=== PATIENT | female | born 1985 | race Caucasian/White ===

== ENCOUNTER 2019-04-30 04:10 | Inpatient (IN) | payer BC, OTHER ==
[~2019-04-30] VITALS: Ht 162.6 cm; Wt 72.0 kg
[2019-04-30 04:20] VITALS: BP 146/81
[2019-04-30] MEDS ORDERED: OXYTOCIN 30U/ 0.9% NaCL 500ML 500 ML IV ONE (04:23)
[2019-04-30] MEDS ORDERED: D5%-LACTATED RINGERS 1,000 ML IV SCH (04:23)
[2019-04-30] MEDS ORDERED: LACTATED RINGERS 1,000 ML IV SCH ×3 (04:23→05:14)
[2019-04-30] MEDS ORDERED: CALCIUM CARBONATE 500 MG TAB.CHEW PO PRN (04:30)
[2019-04-30] MEDS ORDERED: PENICILLIN GK 5,000,000 UNITS in DEXTROSE 5% 100 ML IVPB ONE (04:30)
[2019-04-30] MEDS ORDERED: FENTANYL PF 100 MCG/2ML IVPush PRN (04:30)
[2019-04-30] MEDS ORDERED: TERBUTALINE 1 MG/ML, 1ML SQ PRN (04:30)
[2019-04-30] MEDS ORDERED: FENTANYL PF 100 MCG/2ML IV PRN (04:30)
[2019-04-30] MEDS ORDERED: TERBUTALINE 1 MG/ML, 1ML IVPush PRN (04:30)
[2019-04-30] MEDS ORDERED: ONDANSETRON 2MG/ML, 2ML IVPush PRN (04:30)
[2019-04-30] MEDS ORDERED: LIDOCAINE 1%, 20ML ONE (04:52)
[2019-04-30] MEDS ORDERED: NEWBORN KIT ONE (04:52)
[2019-04-30] MEDS ORDERED: OXYTOCIN 30U/ 0.9% NaCL 500ML 500 ML ONE ×2 (04:53→15:37)
[2019-04-30] MEDS ORDERED: MISOPROSTOL 200 MCG TABLET ONE (04:53)
[2019-04-30] MEDS ORDERED: FENTANYL PF 100 MCG/2ML ONE (04:53)
[2019-04-30] MEDS ORDERED: PLEASE ENTER ALLERGIES MC SCH (05:00)
[2019-04-30] MEDS ORDERED: FENTANYL/BUPIV./NS/PF 250 ML EPIDCONT SCH ×2 (05:07→05:14)
[2019-04-30 05:09] LABS: BASOPHILS # (AUTO) 0.04 x10^3/uL (0-0.1); BASOPHILS % (AUTO) 1 % (0-1); EOSINOPHILS # (AUTO) 0.04 x10^3/uL (0-0.4); EOSINOPHILS % (AUTO) 1 % (1-7); LYMPHOCYTES # (AUTO) 1.36 x10^3/uL (1-3.4); LYMPHOCYTES % (AUTO) 20 % (22-44); MD NO; MEAN CORPUSCULAR HEMOGLOBIN 29.7 pg (27.0-34.8); MEAN CORPUSCULAR HGB CONC 32.9 g/dL (32.4-35.8); MEAN CORPUSCULAR VOLUME 90.3 fL (80-100); MONOCYTES # (AUTO) 0.64 x10^3/uL (0.2-0.8); MONOCYTES % (AUTO) 10 % (2-9); NEUTROPHILS # (AUTO) 4.59 x10^3/uL (1.8-6.8); NEUTROPHILS % (AUTO) 69 % (42-75); PLATELET COUNT 170 x10^3/uL (130-400); RED BLOOD COUNT 4.09 x10^6/uL (3.82-5.3)
[2019-04-30] MEDS ORDERED: LACTATED RINGERS 1,000 ML IVBOLUS PRN ×2 (05:30)
[2019-04-30] MEDS ORDERED: EPHEDRINE 50 MG/ML, 1ML IVPush PRN ×2 (05:30)
[2019-04-30] MEDS ORDERED: NALOXONE 0.4 MG/ML, 1ML IVPush PRN (05:30)
[2019-04-30] MEDS ORDERED: OXYTOCIN 30U/ 0.9% NaCL 500ML 500 ML IV PRN (08:17)
[2019-04-30] MEDS: PENICILLIN GK 2,500,000 UNITS in DEXTROSE 5% 100 ML IVPB SCH ×2 (08:48→13:10)
[2019-04-30] MEDS: OXYTOCIN 30U/ 0.9% NaCL 500ML 500 ML IV SCH (14:09)
[2019-04-30] MEDS ORDERED: SIMETHICONE 80 MG CHEW TAB PO PRN (14:30)
[2019-04-30] MEDS ORDERED: ACETAMINOPHEN 325 MG TABLET PO PRN (14:30)
[2019-04-30] MEDS ORDERED: METHYLERGONOVINE 0.2 MG/ML IM PRN (14:30)
[2019-04-30] MEDS ORDERED: OXYcodone/APAP 5/325MG TABLET PO PRN ×2 (14:30)
[2019-04-30] MEDS ORDERED: ONDANSETRON 2MG/ML, 2ML IV PRN (14:30)
[2019-04-30] MEDS ORDERED: IBUPROFEN 600 MG TABLET ONE (14:55)
[2019-04-30] MEDS: IBUPROFEN 600 MG TABLET PO PRN ×2 (15:00→21:08)
[2019-04-30 17:00] VITALS: BP 124/64
[2019-04-30] MEDS ORDERED: MISOPROSTOL 200 MCG TABLET PR ONE (17:00)
[2019-04-30 20:30] VITALS: BP 109/65
[2019-04-30] MEDS: DOCUSATE 100 MG CAPSULE PO PRN (21:09)
[2019-05-01] MEDS: OXYTOCIN 30U/ 0.9% NaCL 500ML 500 ML IV SCH ×2 (00:09→10:09)
[2019-05-01 00:15] VITALS: BP 110/68
[2019-05-01 00:52] LABS: BASOPHILS # (AUTO) 0.01 x10^3/uL (0-0.1); BASOPHILS % (AUTO) 0 % (0-1); EOSINOPHILS # (AUTO) 0.22 x10^3/uL (0-0.4); EOSINOPHILS % (AUTO) 2 % (1-7); LYMPHOCYTES # (AUTO) 0.92 x10^3/uL (1-3.4); LYMPHOCYTES % (AUTO) 9 % (22-44); MD NO; MEAN CORPUSCULAR HEMOGLOBIN 30.3 pg (27.0-34.8); MEAN CORPUSCULAR VOLUME 91.8 fL (80-100); MONOCYTES # (AUTO) 0.84 x10^3/uL (0.2-0.8); MONOCYTES % (AUTO) 8 % (2-9); NEUTROPHILS # (AUTO) 8.27 x10^3/uL (1.8-6.8); NEUTROPHILS % (AUTO) 81 % (42-75); PLATELET COUNT 145 x10^3/uL (130-400); RED BLOOD COUNT 3.03 x10^6/uL (3.82-5.3); RED CELL DISTRIBUTION WIDTH 13.4 % (9.6-15.2)
[2019-05-01 04:20] VITALS: BP 102/64
[2019-05-01] MEDS ORDERED: PRENATAL VIT/IRON/FA 1 EACH TABLET PO SCH (09:00)
[2019-05-01] MEDS: IBUPROFEN 600 MG TABLET PO PRN (09:18)
[2019-05-01] MEDS: DOCUSATE 100 MG CAPSULE PO PRN (09:18)
[2019-05-01 09:30] VITALS: BP 119/77
[2019-05-01] MEDS ORDERED: IBUP-1222 PO (13:19)
== END 2019-05-01 17:35 | disposition home or self-care (01) | DRG 807 ==
LOC: LDOP 04:10 → LDIP 04:15 → 2NW 17:46
PROVIDERS: ADMIT Obstetrics & Gynecology; ATTEND Obstetrics & Gynecology
PROC: 10E0XZZ Delivery of Products of Conception, External Approach (ICD-10-PCS; principal; 2019-04-30)
PROC: 0KQM0ZZ Repair Perineum Muscle, Open Approach (ICD-10-PCS; 2019-04-30)
PROC: 3E0R3BZ Introduction of Anesthetic Agent into Spinal Canal, Percutaneous Approach (ICD-10-PCS; 2019-04-30)
PROC: 00HU33Z Insertion of Infusion Device into Spinal Canal, Percutaneous Approach (ICD-10-PCS; 2019-04-30)
DX: O99.824 Streptococcus B carrier state complicating childbirth (principal); Z37.0 Single live birth; Z3A.39 39 weeks gestation of pregnancy; O70.1 Second degree perineal laceration during delivery; O69.81X0 Labor and delivery complicated by cord around neck, without compression, not applicable or unspecified
CPT/HCPCS: 36415; J3490; 85025; 86592; 86850; 86900; G0378; J2540; J3010; J2590; J7120